=== PATIENT | male | born 1985 | race African-American/Black ===

== ENCOUNTER 2017-05-14 19:16 | Emergency (ER) | payer SELFPAY ==
[2017-05-14 19:24] VITALS: BP 118/65; BMI 21.7
[2017-05-14] MEDS ORDERED: LEVAQUIN TAB 500 MG PO STA (21:41)
[2017-05-14] MEDS ORDERED: MOTRIN TAB 800 MG PO STA (21:41)
[2017-05-14] MEDS ORDERED: CLARITIN PO STA (21:42)
[2017-05-14] MEDS ORDERED: CLARITIN ONE (21:53)
[2017-05-14] MEDS ORDERED: MOTRIN TAB 800 MG PO ONE (21:53)
[2017-05-14] MEDS ORDERED: LEVAQUIN TAB 500 MG ONE (21:53)
--- NOTE | 2017-05-14 22:10 | DR.GENAD ---
HPI - PCP Primary Care Physician: NFD - Complaint/Symptoms Chief Complaint Doctors Comments: Patient is complaining of cold, cough, fever, body aching with thick sputum production for the past seven days. states he has been taking Mucinix without improvement. States he does not have a local doctor. He smokes 2-3 cigarettes daily and drink alcohol on the weekend. He denies wheezing or SOB. He denies hemoptysis, hematuria, nausea or vomiting. Patient states he has taken the flu shot this year. Chief Complaint:: PT STATES, "I THINK I HAVE BRONCHITIS." PT C/O COUGHING X 1 WEEK AND CP ASSOCIATED WITH COUGH. Self Treatment fo Chief Complaint: MUCINEX - Nurses notes reviewed Nurses Notes Review: Yes - Source History Provided: Patient - Mode of Arrival Mode of Arrival: Ambulatory - Timing Onset of Chief Complaint: 05/07/17 Came on: Gradually - Duration Duration: Constant How lon Duration: Weeks - Location Location: diffuse aches all over - Severity Severity: Mild - Modifying Factors Worsens:: nothing Improves:: nothing PMH - PMH Past Medical History: No Past Surgical History: No - Family History History of Family Medical Conditions: Yes Family Medical History: Hypertension - Social History Type of Tobacco Use: Cigarettes Alcohol Use: Occasionally Do you use any recreational Drugs:: No Lives With: Family Lives Where: Home - infectious screening In the last 2 months have you had wt loss of >10#?: NO Have you had fever, night sweats or hemotysis?: No Have you traveled outside the country in the last 6 months?: No Isolation: Standard ROS - Review of Systems Constitutional: No Symptoms Reported, Fever, Fatigue, Loss of Appetite. negative: See HPI, Chills, Diaphoresis, Malaise, Weakness, Irritable, Other Eyes: No Symptoms Reported ENTM: No Symptoms Reported, Nose Discharge, Nose Congestion. negative: See HPI , Ear Pain, Ear Discharge, Pulling on Ears, Hearing Loss, Nose Pain, Epistaxis, Mouth Pain, Mouth Swelling, Loose Teeth, Drooling, Throat Pain, Throat Swelling , Ear Foreign Body Respiratoy: No Symptoms Reported, Productive Cough. negative: See HPI, Non- Productive Cough, Moist Cough, Dry Cough, Hacking Cough, Barking Cough, Brassy Cough, Orthopnea, Short of Breath, Stridor, Wheezing, Hemoptysis, Other Cardiovascular: No Symptoms Reported. negative: See HPI, Chest Pain, Edema, Palpitations, Syncope, Cyanosis, Skin Mottling, Other Gastrointestinal/Abdominal: No Symptoms Reported. negative: See HPI, Abdominal Pain, Constipation, Diarrhea, Nausea, Vomiting, Food Intolerance, Other Genitourinary: No Symptoms Reported. negative: See HPI, Discharge, Dysuria, Frequency, Hematuria, Pain, Bleeding, Other Neurological: No Symptoms Reported Musculoskeletal: No Symptoms Reported. negative: See HPI, Back Pain, Gout, Joint Pain, Joint Swelling, Muscle Pain, Muscle Stiffness, Neck Pain, Right, Left, Neck, Chest wall, Rib(s), Back, Shoulder, Arm, Elbow, Forearm, Wrist, Hand , Pelvis, Hip, Leg, Knee, Ankle, Foot, Other Integumentary: No Symptoms Reported Hematologic/Lymphatic: No Symptoms Reported Endocrine: No Symptoms Reported Psychiatric: No Symptoms Reported PE - Vital Signs Vitals: Temperature 99.5 F Pulse Rate 115 Respiratory Rate 20 Blood Pressure 118/65 O2 Sat by Pulse Oximetry 97 - General Limitations: No Limitations General Appearance: Alert, In No Apparent Distress, In Distress - Head Head Exam: Normal Inspection, Atraumatic, Normocephalic - Eyes Eye exam: Normal Appearance, PERRL, EOMI. negative: Scleral Icterus, Conjunctival Injection, Nystagmus, Miosis, Mydrasis, Periorbital Swelling, Periorbital Tenderness, Other - ENT ENT Exam: Normal Exam, Normal Oropharynx, Normal External Ear Exam, Mucous Membranes Moist, TM's Normal Bilaterally External Ear Exam: Normal External Inspection TM/Canal Exam: Bilateral Normal Nose Exam: Normal Nose Exam Mouth Exam: Normal Inspection Throat Exam: Normal Inspection - Neck Neck Exam: Normal Inspection, Full ROM, Trachea Midline. negative: Tenderness, Meningismus, Lymphadenopathy, Thyromegaly, Other - Chest Chest Inspection: Normal Inspection, Symmetric Chest Wall Rise - Respiratory Respiratory Exam: Normal Lung Sounds Bilat Respiratory Exam: Bilateral Clear to Auscultation - Cardiovascular Cardiovascular Exam: Regular Rate, Normal Rhythm, Normal Heart Sounds - Abdominal Exam Abdominal Exam: Normal Inspection, Normal Bowel Sounds, Soft. negative: Distention, Tenderness, Guarding, Rebound, Rigidity, Dimnished Bowel Sounds, Hyperactive Bowel Sounds, Hypoactive Bowel Sounds, Organomegaly, Trauma, Incision, Ascites, Mass, Bruit, Pulsatile Mass, Hernia, Other Abdominal Tenderness: negative: RUQ, RLQ, LUQ, LLQ, Epigastrium, Suprapubic, Diffuse, Mild, Moderate, Severe, Other - Extremities Extremities Exam: Normal Inspection, Full ROM, Tenderness, Normal Capillary Refill - Back Back Exam: Normal Inspection, Full ROM. negative: Tenderness, (R) CVA Tenderness, (L) CVA Tenderness, Muscle Spasm, Paraspinal Tenderness, Vertebral Tenderness, Rashes, (R) Sciatic Notch Tenderness, (L) Sciatic Notch Tendern, (R ) Straight Leg Raise, (L) Straight Leg Raise, Other - Neurologic Neurological Exam: Alert, Oriented X3, CN II-XII Intact, Normal Gait, Reflexes Normal - Psychiatric Psychiatric Exam: Normal Affect, Normal Mood. negative: Depressed, Agitated, Anxious, Flat Affect, Manic, Homicidal Ideation, Suicidal Ideation, Other - Skin Skin Exam: Warm, Dry, Intact, Normal Color - Diagnosis Discharge Problem: Sinusitis, acute Bronchitis, acute Qualifiers: Bronchitis organism: other organism Qualified Code(s): J20.8 - Acute bronchitis due to other specified organisms - Discharge Plan Disposition: HOME, SELF-CARE Condition: Stable Prescriptions: Ciprofloxacin/Ciprofloxa HCl [Cipro XR 500 mg] 1 tab PO Q24H #20 tab.sr Fluticasone Nasal [place] [FLONASE NASAL SPRAY *] 2 sprays ENOSTRIL DAILY #1 each Loratadine [Claritin] 10 mg PO DAILY #30 tab - Follow ups/Referrals Follow ups/Referrals: NFD,None [Primary Care Provider] - 3 days Chandler Ledesma [STAFF PHYSICIAN] - 3 days - Instructions Instructions: Acute Bronchitis, Sinusitis, Adult, [id number]
== END 2017-05-14 22:20 | disposition home or self-care (01) ==
LOC: ER 19:33
DX: J20.8 Acute bronchitis due to other specified organisms (principal); J01.80 Other acute sinusitis; Z72.0 Tobacco use
CPT/HCPCS: 99282

== ENCOUNTER 2017-08-15 11:42 | Emergency (ER) | payer SELFPAY ==
[2017-08-15 11:49] VITALS: BP 132/66; BMI 22.4
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
[2017-08-15] MEDS ORDERED: TORADOL TAB PO ONE ×2 (12:27→12:30)
== END 2017-08-15 13:38 | disposition home or self-care (01) ==
LOC: ER 11:56
DX: J10.1 Influenza due to other identified influenza virus with other respiratory manifestations (principal); J01.80 Other acute sinusitis
CPT/HCPCS: 87502; 87651; 99282

== ENCOUNTER 2017-09-21 00:21 | Emergency (ER) | payer OTHER ==
[2017-09-21 00:45] VITALS: BP 139/104; BMI 21.7
[2017-09-21 01:04] LABS: BILIRUBIN,URINE NEGATIVE (NEGATIVE); BLOOD/HEMOGLOBIN,URINE NEGATIVE (NEGATIVE); GLUCOSE, URINE NEGATIVE (NEGATIVE); KETONES,URINE NEGATIVE (NEGATIVE); LEUKOCYTE ESTERASE ,URINE NEGATIVE (NEGATIVE); NITRITES,URINE NEGATIVE (NEGATIVE); PH,URINE 6.5 (5.0 - 8.0); PROTEIN,URINE 1+ (NEGATIVE); UROBILINOGEN,URINE NORMAL (NORMAL)
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
[2017-09-21 01:29] LABS: APPEARANCE,URINE CLEAR (CLEAR); BACTERIA,URINE NEGATIVE /HPF (NEGATIVE); COLOR,URINE PALE YELLOW (YELLOW); RBC,URINE NONE SEEN /HPF (NONE SEEN); SQUAMOUS EPITHELIAL CELL,UR RARE /HPF (NEGATIVE)
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
== END 2017-09-21 02:57 | disposition home or self-care (01) ==
LOC: ER 00:21
DX: S13.9XXA Sprain of joints and ligaments of unspecified parts of neck, initial encounter (principal); S13.4XXA Sprain of ligaments of cervical spine, initial encounter; S00.01XA Abrasion of scalp, initial encounter; V87.7XXA Person injured in collision between other specified motor vehicles (traffic), initial encounter; R51 Headache
CPT/HCPCS: 36415; 70450; 72125; 80307; 81001; 99283; G0434